=== PATIENT | female | born 1955 | race Caucasian/White ===

== ENCOUNTER 2023-04-13 08:50 | Outpatient (RCR) | payer MEDICARE ==
[~2023-04-13 08:50] MED LIST: AZITHROMYCIN250 MG PO
== END 2023-04-27 ==
LOC: RESP 08:50
PROVIDERS: ATTEND Podiatrist Foot & Ankle Surgery
DX: J44.9 Chronic obstructive pulmonary disease, unspecified (principal)
CPT/HCPCS: 94626 ×3; G0238 ×3

== ENCOUNTER 2023-08-29 12:24 | Outpatient (RCR) | payer MEDICARE | END 2023-09-26 | LOC: RESP 12:24 | PROVIDERS: ATTEND Internal Medicine | DX: J44.9 Chronic obstructive pulmonary disease, unspecified (principal) | CPT/HCPCS: 94626; G0238 ==